=== PATIENT | female | born 1955 | race Caucasian/White ===

== ENCOUNTER 2018-07-13 10:30 | Outpatient (CLI) | payer BC | END 2018-07-13 10:31 | disposition home or self-care (01) | LOC: BICMAMMO 10:30 | PROVIDERS: ATTEND Obstetrics & Gynecology | DX: Z12.31 Encounter for screening mammogram for malignant neoplasm of breast (principal); Z80.3 Family history of malignant neoplasm of breast | CPT/HCPCS: 77063; 77067 ==

== ENCOUNTER 2018-07-19 13:38 | Outpatient (CLI) | payer MEDICARE, BC ==
--- NOTE | 2018-07-19 16:07 | BD ---
BONE DENSITOMETRY USING DEXA: HISTORY: Postmenopausal screening for osteoporosis. LUMBAR SPINE BMD (g/cm2) T-SCORE Z-SCORE L1 0.809 -1.6 -0.1 L2 0.759 -2.4 -0.7 L3 0.715 -3.4 -1.5 L4 0.853 -1.9 0.0 TOTAL 0.790 -2.3 -0.6 NECK 0.625 -2.0 -0.5 TOTAL 0.792 -1.2 0.0 The 10 year fracture risk for a major osteoporotic fracture is 10% and for a hip fracture 1.4%. IMPRESSION: Osteopenia. POS: [facility]
== END 2018-07-19 13:39 | disposition home or self-care (01) ==
LOC: BICMAMMO 13:38
PROVIDERS: ATTEND Obstetrics & Gynecology
DX: Z13.820 Encounter for screening for osteoporosis (principal); M85.88 Other specified disorders of bone density and structure, other site
CPT/HCPCS: 77080